=== PATIENT | female | born 1935 | race African-American/Black ===

== ENCOUNTER → 2017-03-17 | Outpatient (CLI) | payer MEDICARE, OTHER ==
[~2017-03-17] MED LIST: ASPIRIN PO; BACTRIM DS TABL1 TAB PO; BENZONATATE200 MG; Cinnamon PO; DARVOCET-N 1001 TAB PO; DIOVAN PO; KEFLEX PO; NEXIUM PO; SYNTHROID PO; TRAVATAN Z5 ML OU; VICODIN 5/500 T1 TAB PO; VITAMIN D-32000 UNIT
--- NOTE | ~2017-03-17 | MY11 ---
[facility] A Service of [facility] RADIOLOGY TEXT RESULTS PATIENT: ALEAH COVARRUBIAS LOCATION: [facility] : 37 UNIT #: [id number] AGE: [address]: Lennox Garcia MD SEX: F ORDER DR: [id number] [facility] [address] [place], [place] [address] [id number] O MR#: [id number] Acc #: [id number] NAME: ALEAH COVARRUBIAS : 1935 SEX: F STUDY DATE/TIME: 03/17/2017 10:59 UNIT: [facility] ROOM: STUDY DESCRIPTION: MY Mammogram Screening Dig Mihir Attending Physician: Lennox Garcia M.D. Ordering Physician: Lennox Garcia M.D. Primary Care Physician: Lennox Garcia M.D. MEDICAL IMAGING REPORT This report is preliminary unless electronic signature is present EXAM Bilateral digital screen mammogram CAD 03/17/2017 INDICATIONS An 81-year-old female for routine screening. No personal history breast cancer. Family history positive in a sister. History of biopsy years ago with presumedly benign results. TECHNIQUE CC and MLO views of the breast were obtained reviewed with an approved CAD device COMPARISON 03/11/2016, 02/20/2015, 01/30/2015, 02/21/2014 FINDINGS Breast parenchyma is composed of scattered fibroglandular densities. The pattern is unchanged. Scar markers are present in the upper outer aspects of both breasts. There is no new dominant nodule, mass or suspicious cluster of microcalcifications. There are benign calcifications present, some which demonstrate benign interval progression compared to the prior imaging studies. Faint benign-appearing nodularity or tortuous vessels in both breasts not significant changed for technical factors. IMPRESSION Benign screening mammogram 1 year followup recommended. BIRADS category II Patients over the age of 40 are entered into a reminder system with target due date for the next mammogram. A result letter will also be sent to the patient. [facility] A Service [facility] RADIOLOGY TEXT RESULTS PATIENT: ALEAH COVARRUBIAS LOCATION: [facility] : 37 UNIT #: [id number] AGE: [address]: Lennox Garcia MD SEX: F ORDER DR: KWABENAADS: 2 Benign Finding Dictated by... Singh Haywood M.D. THIS IS AN ELECTRONICALLY VERIFIED REPORT Singh Haywood M.D. at 03/18/2017 5:35 PM MINDY/aditi TD: 03/17/2017 14:07 JOB #: [id number] MEDICAL IMAGING REPORT Page 1 of 1 COPY
== END | disposition home or self-care (01) ==
LOC: CWCC 10:44
DX: Z12.31 Encounter for screening mammogram for malignant neoplasm of breast (principal); Z80.3 Family history of malignant neoplasm of breast; Z98.890 Other specified postprocedural states
CPT/HCPCS: G0202